=== PATIENT | male | born 1935 | race Two or more races ===

== ENCOUNTER 2019-08-13 07:30 | Outpatient (CLI) | payer OTHER ==
[~2019-08-13 07:30] MED LIST: AMOX1TAB12 PO; OFLOXACIN5 ML OTIC
== END 2019-08-13 10:01 | disposition home or self-care (01) ==
LOC: MRI 07:30
DX: G52.8 Disorders of other specified cranial nerves (principal); T82.898A Other specified complication of vascular prosthetic devices, implants and grafts, initial encounter
CPT/HCPCS: 70551

== ENCOUNTER 2019-08-13 11:16 | Outpatient (CLI) | payer OTHER | END 2019-08-13 15:00 | disposition home or self-care (01) | LOC: LAB 11:16 | DX: H49.00 Third [oculomotor] nerve palsy, unspecified eye (principal) ==

== ENCOUNTER 2019-10-29 09:34 | Outpatient (CLI) | payer OTHER | END 2019-10-29 10:40 | disposition home or self-care (01) | LOC: LAB 09:34 | DX: E11.65 Type 2 diabetes mellitus with hyperglycemia (principal) ==